=== PATIENT | male | born 1985 | race African-American/Black ===

== ENCOUNTER 2020-11-14 14:10 | Emergency (ER) | payer SELFPAY ==
[~2020-11-14] VITALS: Ht 182.9 cm; Wt 75.2 kg
[2020-11-14 14:20] VITALS: BP 139/85
[2020-11-14] MEDS ORDERED: DIPH,PERTUSS(ACELL),TET VAC/PF 0.5 ML SYRINGE. VAX IM ONE (14:30)
[2020-11-14] MEDS ORDERED: LIDOCAINE 1% Multi-Dose 20 ML VIAL. IJ ONE (14:30)
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
== END 2020-11-14 15:36 | disposition home or self-care (01) ==
LOC: EEVIPCON 14:10 → ER 14:10
DX: S01.311A Laceration without foreign body of right ear, initial encounter (principal); J45.909 Unspecified asthma, uncomplicated; Z90.89 Acquired absence of other organs; Y08.89XA Assault by other specified means, initial encounter; Y93.89 Activity, other specified; Y92.89 Other specified places as the place of occurrence of the external cause; Y99.8 Other external cause status
CPT/HCPCS: 12013; 90471; 90715; 99283

== ENCOUNTER 2021-10-01 14:01 | Emergency (ER) | payer SELFPAY ==
[~2021-10-01] VITALS: Ht 182.9 cm; Wt 80.3 kg
[2021-10-01] MEDS ORDERED: AMOX1TAB61 PO (14:29)
[2021-10-01] MEDS ORDERED: TRAM50TA PO (14:29)
[2021-10-01] MEDS ORDERED: traMADol 50 MG TABLET PO ONE (14:30)
[2021-10-01] MEDS ORDERED: AMOXICILLIN/K CLAV 875/125MG TABLET. PO ONE (14:30)
--- NOTE | 2021-10-01 14:30 | PHYS DOC ---
Past History Past Medical History: Asthma Past Surgical History: Appendectomy Alcohol Use: None General Adult EDM: Chief Complaint: DENTAL PROBLEM HPI: HPI: Patient is a 36 year old male who presents with left-sided dental pain. Patient states a few days ago, he began to have left-sided jaw pain. He reports he has a "broken tooth" around the area of his pain. Patient reports he is starting a new job, and will not have insurance coverage or ability to see a dentist for a period of 2 months. He states he has never had dental pain similar to this before. Patient denies fever, chills, eye pain, periorbital swelling, chest pain, palpitations. Review of Systems: Review of Systems: ROS negative except as mentioned in HPI. Allergies: Allergies: Allergies Coded Allergies Type Severity Reaction Last Updated Verified No Known Drug Allergies 10/01/21 No Physical Exam: PE: Constitutional: Well developed, well nourished, no acute distress, non-toxic appearance. HENT: Normocephalic, atraumatic, bilateral external ears normal, oropharynx moist, somewhat poor dentition with 23 missing teeth, dental cavity noted on molar on left lower jaw with surrounding erythema, external nose without obvious deformity or discharge. Eyes: EOMI, no periorbital swelling, conjunctiva normal, no discharge. Neck: Normal range of motion, no tenderness, no lymphadenopathy, no stridor. Cardiovascular: Heart rate regular rhythm, no murmur. Lungs & Thorax: Bilateral breath sounds clear to auscultation. Current Patient Data: Vital Signs: VS - Last 72 Hours, by Label Date Time Temp Pulse Resp B/P (MAP) Pulse Ox O2 Delivery O2 Flow Rate FiO2 10/01/21 14:42 82 18 99 10/01/21 14:34 18 98 Room Air 10/01/21 14:05 98.1 82 18 126/87 (100) 98 Room Air Heart Score: C/O Chest Pain: No Course & Med Decision Making: Course & Med Decision Making Pertinent Labs and Imaging studies reviewed. (See chart for details) Patient will be given first dose of antibiotics and tramadol here in the department. Patient advised that definitive management can only be done by dentistry. I will provide him with contact information from clinics in [place] that offer discounted or free services. Patient understands and is agreeable to discharge plan. Dragon Disclaimer: Juliet Disclaimer: This electronic medical record was generated, in whole or in part, using a voice recognition dictation system. Departure Departure: Impression: Primary Impression: Dental cavity Additional Impression: Oral infection Disposition: HOME / SELF CARE / HOMELESS Condition: STABLE Referrals: PCP,NO (PCP) Patient Instructions: Dental Pain, [id number] Additional Instructions: It is important that you take the full course of antibiotics. Dental infections are at high risk to lead to infective endocarditis, so if you have any chest pain, palpitations or other discomfort, please return to the emergency department. If you are interested in becoming a patient at the [facility], please call . Our Emergency Clinic is Now Welcoming Walk- in Appointments for Patients That are Experiencing Pain If you are in pain, arrive at the [facility] at 7:30 am for morning session or 11:30 am for afternoon session. Walk-ins are first come first serve and there are no guarantees of being seen. Patients will need to be sure they have a valid ID to be seen. If the address on your ID is not correct, you will need to pre sent a utility bill within the last 30 days to verify the address. The fees for emergency will be $52 (assessment fee) plus the cost of treatment that is rendered. We ask that no extra people are in the building other than the patient unless you have a legal guardian, edge inker uppers or caregiver. If you would prefer scheduling an emergency appointment instead of using a walk-in appointment, please call [phone] and chose the option for emergency clinic. Scripts Amoxicillin/Potassium Clav (AUGMENTIN 875-125 TABLET) 1 Each Tablet 1 TAB PO BID for dental infection for 10 Days, #19 TAB 0 Refills Prov: RASHID HORN 10/01/21 Tramadol Hcl (TRAMADOL HCL) 50 Mg Tablet 50 MG PO PRN Q6HRS PRN for PAIN, #20 TAB Prov: RASHID HORN 10/01/21 RASHID HORN Oct 01, 2021 14:30
[2021-10-01 14:42] VITALS: BP 129/88
== END 2021-10-01 14:44 | disposition home or self-care (01) ==
LOC: ER 14:01
DX: K02.9 Dental caries, unspecified (principal); K12.2 Cellulitis and abscess of mouth
CPT/HCPCS: 99283